=== PATIENT | male | born 1980 | race African-American/Black ===

== ENCOUNTER 2023-01-30 00:32 | Emergency (ER) | payer MEDICAID, SELFPAY ==
[2023-01-30 00:38] VITALS: BP 124/83; PULSE 86; RESP 22; TEMP 36.6; O2SAT 96; BMI 32.2
[2023-01-30 00:55] VITALS: PULSE 86
--- NOTE | 2023-01-30 00:57 | ED_ITS ---
HPI - General Adult General Chief complaint: Extremity Pain/Injury, Upper Stated complaint: right arm pain/injury Time Seen by Provider: 01/30/23 00:36 History of Present Illness HPI narrative: pt uses friend at bedside, pt requests friend to interpret. pt states fell down 4 stairs 4 days ago, entire R arm hurts from wrist area up to shoulder. pt states he took robaxin 1000mg multiple times today, LD at 2100. pt also presents with oxycodone bottle but states has not taken any of 42-year-old man presenting to the emergency department with a friend to help with some interpreting with complaint of right arm pain. Four days ago apparently fell down for stairs describing landing on his right side/arm. Is complaining of diffuse in extreme pain over his entire right arm. Has been prescribed Robaxin as well as oxycodone. NSAIDs as well. Today visit gregg his 3rd visit through area emergency/urgent care department. Does not sound as though he has actually been taking medications regularly, never getting full relief. Is not complaining of neck or back pain. There was no head injury or loss of consciousness. I believe has been trying some [id number] creams as well Related Data Previous Rx's Medication Instructions Recorded gabapentin 300 mg capsule 300 mg PO TID #90 caps 01/30/23 Allergies Allergy/AdvReac Type Severity Reaction Status Date / Time cephalexin [From Keflex] AdvReac Diarrhea Verified 01/30/23 01:09 Review of Systems Status of ROS: Reports: 6 or more systems reviewed and unremarkable except as noted in History and below [facility] Medical History History of Helicobacter pylori infection ?Z86.19 - Personal history of other infectious and parasitic diseases (ICD- 10) Allergic rhinitis ?J30.9 - Allergic rhinitis, unspecified (ICD-10) Social History Smoking Status: Never smoker Do you use any of these nicotine containing products: None How often do you have a drink containing alcohol: never AUDIT-C Alcohol total score: 0 Non-prescribed substance use: denies use Exam Narrative: Exam Narrative: Generally calm but amplified distress quickly with any movement. Favoring his right arm held across his body bent at 90? at the elbow. Head is atraumatic. Neck is supple. Lungs are clear. Heart in regular rate and rhythm. Back is nontender until palpation of the right rhomboid area. No pain to palpation of the chest wall otherwise. He does not have discrete scapular pain or AC joint pain or clavicle pain. I do not appreciate any swelling of the arm really. He resists supination and pronation of the forearm with complaint of pain. Is not discretely tender over the wrist or forearm. Pain seems to be maximal over the right side lateral epicondyle of the elbow. Const: Vital Signs, click to edit/add: Vital Signs - 24 hr 01/30/23 00:38 Temperature 97.9 F Pulse Rate [Left P ulse Oximeter] 86 Respiratory Rate 22 Blood Pressure [Ri ght Upper Arm] 124/83 Pulse Oximetry 96 Oxygen Delivery Me thod Room Air Course Vital Signs Vital signs: Initial Vital Signs Temperature 97.9 F 01/30/23 00:38 Temperature Source Temporal Artery Scan 01/30/23 00:38 Pulse Rate 86 01/30/23 00:38 Respiratory Rate 22 01/30/23 00:38 Blood Pressure 124/83 01/30/23 00:38 Blood Pressure Mean 96 01/30/23 00:38 Blood Pressure Position Sitting 01/30/23 00:38 Pulse Oximetry 96 01/30/23 00:38 Oxygen Delivery Method Room Air 01/30/23 00:38 Vital Signs Temperature 97.9 F 01/30/23 00:38 Pulse Rate 86 01/30/23 00:38 Respiratory Rate 22 01/30/23 00:38 Blood Pressure 124/83 01/30/23 00:38 Pulse Oximetry 96 01/30/23 00:38 Oxygen Delivery Method Room Air 01/30/23 00:38 Temperature 97.9 F 01/30/23 00:38 Pulse Rate 84 01/30/23 02:33 Respiratory Rate 18 01/30/23 02:33 Blood Pressure 122/82 01/30/23 02:33 Pulse Oximetry 98 01/30/23 02:33 Oxygen Delivery Method Room Air 01/30/23 02:33 Medical Decision Making MDM Narrative Medical decision making narrative: Reviewing records, it appears he has already had his shoulder imaged. Wrist as well. His pain seems to localize around the elbow. This may simply be a lateral epicondylitis with some regional pain affect at this point. Will x-ray though the elbow area. Thinking initially that perhaps there was some radicular component from his cervical spine, did give a dose of prednisone. This may be helpful though regardless. Also giving 2 tabs of Percocet as this is what he already has available. I think he has only been taking 1 at a time. Need to get ahead of this pain briefly. Placing also lidocaine patch directly over this lateral epicondyle. X-ray of the elbow reviewed by me looks to be unremarkable. See patient discharge plan. Medical Records Medical records reviewed: Yes I reviewed the patient's medical records Discharge Plan Discharge Clinical Impression: Arm pain, Rhomboid muscle pain Patient Disposition: Home w/ Parent or Adult Condition: Improved Additional Instructions: See handout for exercises for the upper back that I would like you to start and do 1 - 2 times daily. Wear the arm sling if it seems to help. If you think the lidocaine patches are helpful, can purchase more of these [id number]. Where you have Pain you likely have information, therefore with a little food, I would over the next 5 days take 600 mg of ibuprofen 3 times daily or 500 mg of naproxen 2 times daily. Both of these can be purchased [id number]. In addition I would like to try you on a course of gabapentin. This is a medication that helps with nerve-type pain. Begin at 300 mg 3 times a day. There is a wide dosing range with this medication but increasing beyond 600 mg 3 times a day I would want you to do only after follow-up with a physician. I do think you need to call tomorrow to schedule with a primary care provider; darwin cerda that you can see regularly. You do have oxycodone available and can take 2 tablets at once if you need to. This just covers up pain. It does not appear that the methocarbamol is helpful, and so I would stop that. I worry that you might be developing a regional pain syndrome. You might benefit from acupuncture and I would consider seeking out a practitioner of acupuncture to help you. You do need to stick with a treatment course for some time to know whether not it will be effective or whether it has been a failure. It is difficult to jump from treatment to treatment. Some medications provide immediate relief, or they do not. Other medications require that you continue the course of therapy for a time to know whether not they will be effective. Prescriptions: New gabapentin 300 mg capsule 300 mg PO TID Qty: 90 0RF Follow Up/Referrals: Provider,Not a Local [Referring] - Stand Alone Forms: My[facility] Info Instructions
--- NOTE | 2023-01-30 01:06 | CRLHL7_ITS ---
For Patients: As a result of the Century Cures Act, medical imaging exams and procedure reports are released immediately into your electronic medical record. You may view this report before your referring provider. If you have questions, please contact your health care provider. Indication: Fell on elbow 4 days ago Technique: Three views right elbow Comparison: Nine Findings: Bones: Alignment is normal. No fractures or bone lesions. Joint spaces: Unremarkable. Soft tissues: Unremarkable. Impression: Negative. Dictated by Cristal Argueta MD @ 01/30/2023 1:51:35 AM (Electronically Signed)
[2023-01-30] MEDS: LIDOCAINE 5% PATCH 1 PATCH TRANSDERMA (01:16)
[2023-01-30] MEDS: OxyCODONE/APAP 5-325 TABLET 2 TAB PO (01:16)
[2023-01-30] MEDS: GABAPENTIN 300 MG CAPSULE PO (02:25)
[2023-01-30] MEDS: predniSONE 20 MG TABLET 60 MG PO (02:25)
[2023-01-30 02:33] VITALS: BP 122/82; PULSE 84; RESP 18; O2SAT 98
== END 2023-01-30 02:35 | disposition home or self-care (01) ==
PROVIDERS: Emergency Provider Family Medicine; PCP Family Medicine
DX: M79.601 Pain in right arm (principal)
CPT/HCPCS: 73080; 99284; A9270; J7512